=== PATIENT | male | born 1990 | race Caucasian/White ===

== ENCOUNTER 2021-07-25 15:59 | Emergency (ER) | payer SELFPAY ==
[2021-07-25 16:24] VITALS: BP 155/98; PULSE 98; RESP 18; TEMP 36.7; O2SAT 98; BMI 24.5
--- NOTE | 2021-07-25 16:35 | W.ED.GENADLT ---
HPI - General Adult General: Chief complaint: General Medical Stated complaint: PAINFUL SWELLING/GROWTH ON PENIS Time Seen by Provider: 07/25/21 16:31 History of Present Illness: HPI narrative: He said he had a little tomlinson on the shaft of his penis and he stuck a pin in it couple days ago and now it is red and tender. Denies any chance of having a sexually transmitted disease. Onset (ago): day(s) Associated symptoms: Deny dyspnea Review of Systems Const: Denies: fever(s) or chills Resp: Denies: dyspnea Musc: Denies: extremity pain Skin/Breast: Reports: other (Patient has redness to his penis where he stuck a pen and pimple area.) Psych: Denies: anxiety or depression PFS ED PFSH: Social History (Updated 03/02/20 @ 15:26 by Liana Herr LPN) Smoking and tobacco status: current every day smoker Alcohol intake: current Physical Exam Const: COMMON NORMALS: no acute distress Psych: COMMON NORMALS: mental status grossly normal Skin: OTHER: Patient has redness about a dime in size on the shaft of his penis below the head. And has an area in the center where he obviously he is stuck a pin in it. No tenderness does not feel fluctuant at all. Mild erythema. Course Vital Signs: Vital signs: Vital Signs Temperature 98.1 F 07/25/21 16:24 Pulse Rate 98 07/25/21 16:24 Respiratory Rate 18 07/25/21 16:24 Blood Pressure 155/98 07/25/21 16:24 Pulse Oximetry 98 07/25/21 16:24 Discharge Plan Discharge Prescriptions: No Action No Known Home Medications RF: 0 Coding Level of Care Code ED Assistant General Manager for Ashly Marquez
[2021-07-25 18:35] VITALS: BP 148/91; PULSE 89; RESP 18; TEMP 37.1; O2SAT 98
== END 2021-07-25 18:40 | disposition home or self-care (01) ==
PROVIDERS: Emergency Provider Nurse Practitioner Family
DX: L98.9 Disorder of the skin and subcutaneous tissue, unspecified (principal); F17.210 Nicotine dependence, cigarettes, uncomplicated
CPT/HCPCS: 99282

== ENCOUNTER 2021-10-03 17:16 | Emergency (ER) | payer SELFPAY ==
[2021-10-03 17:28] VITALS: BP 156/95; PULSE 86; RESP 16; TEMP 36.7; O2SAT 98; BMI 23.7
--- NOTE | 2021-10-03 18:30 | W.ED.FALL ---
HPI - Fall General: Chief Complaint: Fall Stated Complaint: Fall, chest pain Time Seen by Provider: 10/03/21 18:29 History of Present Illness: Patient comes in today with left rib pain. Patient reports falling 2 times on Friday and since then has had rib discomfort. Patient was sent home today from work due to increasing pain. Patient appears in moderate pain. Patient appears nontoxic otherwise. Respirations are even. Associated symptoms-after fall: Reports chest pain; Denies abdominal pain Review of Systems General: Reports: 10 or more systems reviewed and unremarkable except in HPI and below Const: Denies: fever(s) Card: Reports: chest pain Resp: Denies: dyspnea GI: Denies: abdominal pain PFS ED PFSH: Social History (Updated 03/02/20 @ 15:26 by Liana Herr LPN) Smoking and tobacco status: current every day smoker Alcohol intake: current Physical Exam Const: COMMON NORMALS: alert HENMT: COMMON NORMALS: atraumatic HEAD & SCALP: atraumatic Neck/C-Spine: COMMON NORMALS: full ROM CERVICAL SPINE: No Cervical spine tenderness Chest: CHEST: Yes tenderness (Left anterior chest wall, no crepitus) Resp: COMMON NORMALS: normal respiratory effort and clear to auscultation bilaterally AUSCULTATION: clear to auscultation bilaterally Cardio: COMMON NORMALS: regular rate and regular rhythm RATE: regular rate RHYTHM: regular rhythm GI: COMMON NORMALS: Soft to palpation and non-tender PALPATION: Yes Soft to palpation Back/Pelvis: THORACIC SPINE/UPPER BACK: No thoracic spinal tenderness and No paraspinal muscle tenderness LUMBAR SPINE/LOWER BACK: No lumbar spinal tenderness and No paraspinal muscle tenderness Extremity: COMMON NORMALS: normal to inspection and full ROM Neuro: SENSORIUM/ORIENTATION: Yes alert Skin: COMMON NORMALS: no rashes or lesions noted GENERAL SKIN EXAM: no rashes or lesions noted Course Vital Signs: Vital signs: Vital Signs Temperature 98.1 F 10/03/21 17:28 Pulse Rate 86 10/03/21 17:28 Respiratory Rate 16 10/03/21 17:28 Blood Pressure 156/95 10/03/21 17:28 Pulse Oximetry 98 10/03/21 17:28 MDM - Fall Medical Decision Making 31-year-old male patient comes in today with complaints of left rib pain. On exam palpation of the ribs elicits pain, no crepitus or deformity is palpated. Lungs are clear to auscultation heart rates regular. Differential diagnosis includes contusion, costochondritis, rib fracture. X-ray noted no obvious rib fracture. Reviewed exam with patient with recommendations for treatment for pain and maintaining good aeration of lung powell. Patient reported understanding and agreed to plan. Discharge Plan Discharge Patient Disposition: Home Clinical Impression: Contusion of rib on left side Qualifiers: Encounter type: initial encounter Qualified Code(s): S20.212A - Contusion of left front wall of thorax, initial encounter Condition: Stable Prescriptions: New ibuprofen 800 mg tablet 800 mg PO Q8H PRN (Reason: pain) Qty: 30 0RF hydrocodone-acetaminophen 5-325 mg tablet 1 tab PO Q8H PRN (Reason: pain) Qty: 6 0RF Discharge Orders: Discharge ED (Routine); Ordered 10/03/21 Ordered By: Godwin Whitney Discharge Diet: Usual diet Discharge Activity: Increase activity as tolerated Patient Instructions: Musculoskeletal Pain (ED), Opioid Safety Activity Restrictions/Additional Instructions: Activity as tolerated. Use ice or heat to the area of pain for comfort. Drink plenty of water with medication. Use Tylenol and ibuprofen to control pain. Use hydrocodone for severe pain. Follow-up with primary care as needed. Return to ER for new concerns. Stand Alone Forms: Work/School Release Coding Level of Care Code ED Upholstery Instructor for Ashly Fwkayode Exam Comprehensive
--- NOTE | 2021-10-03 18:36 | XRR_ITS ---
PROCEDURE INFORMATION: Exam: XR Left Ribs with PA Chest Exam date and time: 10/03/2021 6:49 PM Age: 31 years old Clinical indication: Other: Rib pain upper left side; Additional info: Rib pain after fall TECHNIQUE: Imaging protocol: XR Left ribs with PA chest. Views: 3 views COMPARISON: No relevant prior studies available. FINDINGS: Lungs: Unremarkable. No consolidation. Pleural spaces: Unremarkable. No pleural effusion. No pneumothorax. Heart/Mediastinum: Unremarkable. No cardiomegaly. Bones/joints: Unremarkable. XR/XR ribs LT mn 3V w [id number] IMPRESSION: No acute findings.
[2021-10-03] MEDS: ibuprofen 800 mg tablet PO (19:07)
== END 2021-10-03 19:26 | disposition home or self-care (01) ==
PROVIDERS: Emergency Provider Nurse Practitioner Family
DX: S20.212A Contusion of left front wall of thorax, initial encounter (principal); F17.210 Nicotine dependence, cigarettes, uncomplicated; W19.XXXA Unspecified fall, initial encounter
CPT/HCPCS: 71101; 99283

== ENCOUNTER 2022-04-06 02:12 | Emergency (ER) | payer SELFPAY ==
[2022-04-06 02:14] VITALS: BP 138/72; PULSE 120; RESP 20; TEMP 36.6; O2SAT 98; BMI 33.4
--- NOTE | 2022-04-06 02:20 | ECG_ITS ---
[facility] Test Date: 2022-04-06 Pat Name: Dmitry Perkins Department: Room: Gender: Male Prizer Hand: : 1990 Requested By: Alvarado Martines Order Number: [id number] Forrest MD: Marysol Rodriguez M.D. Measurements Intervals [place]ely Rate: 121 P: 34 MD: 153 QRS: 208 QRSD: 92 T: 22 QT: 296 QTc: 420 Interpretive Statements SINUS TACHYCARDIA INDETERMINATE AXIS PATTERN CONSISTENT WITH PULMONARY DISEASE POSSIBLE RIGHT VENTRICULAR HYPERTROPHY [SOME/ALL OF: PROMINENT R IN V1, LATE TRANSITION, RAD, ANTONY, SSS] No previous ECG available for comparison Electronically Signed On 04-06-2022 18:11:29 CDT by Marysol Rodriguez M.D. [id number]
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
[2022-04-06 02:26] VITALS: BP 138/77; RESP 19; O2SAT 98
--- NOTE | 2022-04-06 02:47 | PC.NURSE ---
patient refusing to stay in room, patient refusing to wear equipment or have labs drawn. patient wanting to leave. assisted with using phone, family contacted to pick patient up. clarified with zinc furnace charger Josh and Dr wilcox, both state per md order and facility the patient can go to the waiting area with security but if he leaves campus without a ride police must be notified. patient aware of this info, walked to waiting rm by security.
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
== END 2022-04-06 02:54 | disposition home or self-care (01) ==
PROVIDERS: Emergency Provider Emergency Medicine
DX: F10.10 Alcohol abuse, uncomplicated (principal); F17.200 Nicotine dependence, unspecified, uncomplicated
CPT/HCPCS: 93005; 99283